=== PATIENT | female | born 1975 | race Caucasian/White ===

== ENCOUNTER 2023-01-27 15:21 | Outpatient (AMB) | payer OTHER, SELFPAY ==
--- NOTE | 2023-01-27 15:35 | A.OFFVIS_ITS ---
Intake Vital Signs 01/27/23 15:40 Height 5 ft Weight 95 lb BMI 18.6 BP 104/55 L Blood Pressure Location Rt brachial Position Sitting Pulse 67 Intake Visit Reasons: ? bowel obstruction Intake Note: This patient presents for an assessment for question of bowel obstruction. Patient c/o; CIC, reports using enema for the past 4 days, reports no rectal bleeding, pain or pressure, reports no abdominal pain, reports right eye pain when get fecal impaction, reports spends 3-5 hours in the bathroom daily. 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 Present (Yumiko) Accompanied by: Self / Same As Patient Allergies amoxicillin Allergy (Verified 01/27/23 15:41) Hives [facility] Medical History (Updated 01/28/23 @ 14:02 by Kevan Loo MD) Chronic constipation Surgical History (Updated 01/27/23 @ 15:47 by MORAIMA Ramos) History of cholecystectomy Family History (Updated 01/27/23 @ 15:43 by MORAIMA Ramos) Father Lung cancer Hodgkins disease Social History (Updated 01/27/23 @ 15:43 by MORAIMA Ramos) Alcohol intake: current Alcohol intake frequency: holidays/special occasions only Patient Tobacco Use Status: Never used Tobacco Physical Exam Vital Signs: Last Vital Signs Pulse 67 01/27/23 15:40 BP 104/55 L 01/27/23 15:40 BMI result Body Mass Index 18.6 Office Procedures Anoscopy She was in bee-knife position. The anoscope was gently inserted. A full examination of the anal canal was done. She did have internal and external hemorrhoids, prominent on the right side. There were no other lesions. There was no fissure or induration. There was no blood. Good sphincter tone, both resting and squeeze. I do not see any prolapse. [id number] Assessment & Plan Assessment & Plan (1) Chronic constipation: Code(s): K59.09 - Other constipation Plan: She is self-referred for chronic constipation. She describes sitting in the toilet for up to 5 hours a day trying to have BMs. She states that she eventually has BMs that are mushy in consistency and not hard. She frequent has very water stools as well. She also says she does enemas on herself many times a day, as she feels she gets severe right sided headaches if she does not have BMs. She essentially forces herself to have bowel movements everyday. She is worried that she may have a blockage in her anus. I assured her that anoscopy and digital exam does not suggest this at all. She has had multiple colonoscopies for workup the past 20 years. She says she had sitz marker studies done in the past but she says these have always been inconclusive as she still takes her laxatives even with the studies. It is striking that she feels she needs to go the bathroom everyday even without the urge to have a BM. She says she gets right sided headaches if she does not have a bowel movement. I had a logn discussion with her and told her that she should go to the bathroom only when she is ready to have a bowel movement and when she has the urge to defecate. I explained to her that it does not help if she sits on the toilet for hours everyday and does enemas even when she has no urge to have BMs. She may have a severe variant of IBS. Clinically, she does not seem to have colonic inertia. I did tell her that it does not appear that there is any surgical intervention that may be beneficial to her short of a stoma. She describes right sided headaches if she does not go to the toilet everyday. I am uncertain if her headaches are actually related to her GI issues but it may be worthwhile for her to see a neurologist for this. Coding Level of Care Code New Pt Level 4 (77581) Diagnoses Chronic constipation K59.09 CPT Codes Details - CPT: 92055-[id number] ([id number])
[2023-01-27 15:40] VITALS: BP 104/55; PULSE 67; BMI 18.6
== END 2023-01-27 16:23 | disposition home or self-care (01) ==
PROVIDERS: Visit Provider Surgery
DX: K59.09 Other constipation (principal)
CPT/HCPCS: 46600; 99204

== ENCOUNTER → 2023-01-27 15:21 | Outpatient (BNVA) | payer OTHER, SELFPAY | PROVIDERS: Visit Provider Surgery | DX: K59.09 Other constipation (principal) | CPT/HCPCS: 46600 ==